=== PATIENT | female | born 1965 | race Caucasian/White ===

== ENCOUNTER → 2019-03-12 | Outpatient (CLI) | payer OTHER | LOC: EMCIMAGING 15:50 | PROVIDERS: ATTEND Family Medicine | DX: S99.911A Unspecified injury of right ankle, initial encounter (principal); M77.31 Calcaneal spur, right foot | CPT/HCPCS: 73610-PN ==

== ENCOUNTER → 2019-05-11 | Outpatient (CLI) | payer OTHER | LOC: EMCIMAGING 14:21 ==